=== PATIENT | female | born 1945 | race Caucasian/White ===

== ENCOUNTER 2017-04-24 10:24 | Day surgery (SDC) | payer MEDICARE, OTHER ==
[~2017-04-24] VITALS: Ht 165.1 cm; Wt 90.8 kg
[~2017-04-24 10:24] MED LIST: CELEXA40 MG PO; CENTRUM1 TA1 PO; DETROL1 MG PO; INHALER; RT ADVAIR HFA 1112 G IH; ZANTAC 150MG T150 MG PO
[2017-04-24] MEDS ORDERED: AMBIEN 10MG10 MG PO (11:22)
[2017-04-24] MEDS ORDERED: NEURONTIN800 MG/TAB PO (11:24)
[2017-04-24] MEDS ORDERED: NEURONTIN600 MG/TAB PO (11:25)
[2017-04-24] MEDS ORDERED: PREVACID 15MG15 M1 PO (11:26)
[2017-04-24] MEDS ORDERED: CITRACAL + D CA1 TAB PO (11:28)
[2017-04-24 11:31] VITALS: BP 140/81; PULSE 57; TEMP 97.8
[2017-04-24 14:36] VITALS: BP 134/71; PULSE 56
[2017-04-24 14:51] VITALS: BP 143/61; PULSE 52
[2017-04-24 15:06] VITALS: BP 147/69; PULSE 53
[2017-04-24 15:21] VITALS: BP 153/71; PULSE 61
[2017-04-24] MEDS ORDERED: CEPHALEXIN500 M1 PO (15:51)
== END 2017-04-24 16:05 | disposition home or self-care (01) ==
LOC: SDCO 10:24
DX: R35.0 Frequency of micturition (principal); R39.15 Urgency of urination; F32.9 Major depressive disorder, single episode, unspecified; D64.9 Anemia, unspecified; J45.909 Unspecified asthma, uncomplicated; K21.9 Gastro-esophageal reflux disease without esophagitis; G47.33 Obstructive sleep apnea (adult) (pediatric); M06.9 Rheumatoid arthritis, unspecified; M96.1 Postlaminectomy syndrome, not elsewhere classified; Z96.659 Presence of unspecified artificial knee joint; Z82.49 Family history of ischemic heart disease and other diseases of the circulatory system; Z84.2 Family history of other diseases of the genitourinary system
CPT/HCPCS: C1767; C1778; C1787; C1894; J1885; J2250; J2405; J2704; J3010; J7120

== ENCOUNTER 2017-09-14 11:25 | Day surgery (SDC) | payer MEDICARE, OTHER ==
[2017-09-14] VITALS (12 sets, daily range): BP systolic 93–153; BP diastolic 54–88; PULSE 58–82; TEMP 96.9–98
[~2017-09-14] VITALS: Ht 165.1 cm; Wt 95.0 kg
[~2017-09-14 11:25] MED LIST changes: +AMBIEN 10MG10 MG PO; +CEPHALEXIN500 M1 PO; +CITRACAL + D CA1 TAB PO; +NEURONTIN600 MG/TAB PO; +NEURONTIN800 MG/TAB PO; +PREVACID 15MG15 M1 PO
[2017-09-14] MEDS ORDERED: ASPIRIN 32325 MG/TAB PO (12:31)
[2017-09-14 12:56] LABS: HEMATOCRIT 40.9 % (37.0-47.0); HEMOGLOBIN 13.1 g/dl (12.5-16.0); MEAN CELL VOLUME 88 fl (80.0-100.0); MEAN CORPUSCULAR HEMOGLOBIN 28 pg (27.0-31.0); MEAN CORPUSCULAR HGB CONC 32 g/dl (33.0-37.0); MEAN PLATELET VOLUME 9.8 fl (7.4-10.4); PLATELET COUNT 257 K/mm3 (130-400); RED BLOOD COUNT 4.67 M/mm3 (4.10-5.30); REDCELL DISTRIBUTION WIDTH-CV 15.4 % (11.5-14.5)
[2017-09-14 13:02] LABS: PROTHROMBIN TIME 11.1 SECONDS (9.7-12.8)
[2017-09-14 13:09] LABS: CALCIUM 8.8 mg/dL (8.4-10.2); CREATININE, serum 0.86 mg/dL (0.52-1.25); POTASSIUM 4.3 mmol/L (3.4-5.0)
== END 2017-09-14 20:15 | disposition home or self-care (01) ==
LOC: COL.CAR 11:25
PROVIDERS: Internal Medicine Interventional Cardiology
DX: I25.118 Atherosclerotic heart disease of native coronary artery with other forms of angina pectoris (principal); G25.81 Restless legs syndrome; Z79.82 Long term (current) use of aspirin; Z82.49 Family history of ischemic heart disease and other diseases of the circulatory system; Z83.3 Family history of diabetes mellitus
CPT/HCPCS: J2250; J3010; Q9967

== ENCOUNTER 2023-12-26 05:16 | Day surgery (SDC) | payer MEDICARE, OTHER ==
[~2023-12-26] VITALS: Ht 165.1 cm; Wt 89.9 kg
[2023-12-26] VITALS (16 sets, daily range): BP systolic 106–146; BP diastolic 53–76; PULSE 50–84; TEMP 97.2–98.1
[~2023-12-26 05:16] MED LIST changes: +ASPIRIN 32325 MG/TAB PO
[2023-12-26] MEDS ORDERED: Acetaminophen 500 MG TAB PREOP X1 PO SCH (06:00)
[2023-12-26] MEDS ORDERED: Pregabalin 150 MG CAP PREOP X1 PO SCH (06:00)
[2023-12-26] MEDS ORDERED: Celecoxib 400 MG PREOP X1 PO SCH (06:00)
[2023-12-26] MEDS ORDERED: LR 1,000 ML IV SCH (06:00)
[2023-12-26] MEDS ORDERED: Famotidine 20 MG TAB PO SCH (06:00)
[2023-12-26] MEDS ORDERED: TAGAMET300 MG PO (06:37)
[2023-12-26] MEDS ORDERED: DESYREL 100MG100 MG PO (06:37)
[2023-12-26] MEDS ORDERED: GEMTESA75 MG PO ×2 (06:38→13:03)
--- NOTE | 2023-12-26 06:39 | NUR ---
Pt admitted to [facility] at 0530. Admission assessments completed. Consent signed. Pharmacy, allergies, and medications confirmed. 18G IV inserted into LFA, LR infusing without difficulty. Pt has incontinenc pad on, will let her leave on until they take her to OR. Glasses on at this time, upper dentures remain in per preference. RLE marked and cleansed per order. Thigh high GILBERT hose to LLE. Pedal pulses marked. Daughter, Sharon, at bedside. See EMAR for medications given. Voids urine. Cart in low position, call light within reach.
[2023-12-26] MEDS ORDERED: Lidocaine PF 2% (20 MG/ML) 5 ML VIAL ONE (06:41)
[2023-12-26] MEDS ORDERED: fentaNYL 50 MCG/ML 2 ML VIAL ONE (06:45)
[2023-12-26] MEDS ORDERED: Midazolam 2 MG/2 ML VIAL ONE (06:45)
[2023-12-26] MEDS ORDERED: oxyCODONE 5 MG TAB PO PRN (07:15)
[2023-12-26] MEDS ORDERED: Ondansetron 4 MG/2 ML VIAL IV PRN ×2 (07:15→09:00)
[2023-12-26] MEDS ORDERED: Magnes Hydrox (MOM) 80 MG/ML 30 ML CUP PO PRN (07:15)
[2023-12-26] MEDS ORDERED: Naloxone 0.4 MG/ML VIAL IV PRN (07:15)
[2023-12-26] MEDS ORDERED: Tranexamic Acid 1,000 MG/10 ML VIAL ONE ×2 (07:43→08:33)
[2023-12-26] MEDS ORDERED: Topical Skin Adhesive 1 EACH (1 ML) TOP ONE (07:46)
[2023-12-26] MEDS ORDERED: NS 100 ML IV ONE (08:59)
[2023-12-26] MEDS ORDERED: dexAMETHasone 10 MG/ML VIAL ONE (08:59)
[2023-12-26] MEDS ORDERED: Glycopyrrolate 0.2 MG/ML 1 ML VIAL ONE (08:59)
[2023-12-26] MEDS ORDERED: Ondansetron 4 MG/2 ML VIAL ONE (08:59)
[2023-12-26] MEDS ORDERED: Phenylephrine 10 MG/ML VIAL ONE (08:59)
[2023-12-26] MEDS ORDERED: hydrALAZINE 20 MG/ML 1 ML VIAL IV PRN (09:00)
[2023-12-26] MEDS ORDERED: HYDROmorphone 1 MG/1 ML SYRINGE [PACU/SDC ONLY] IV PRN (09:00)
[2023-12-26] MEDS ORDERED: fentaNYL 50 MCG/ML 1 ML SYRINGE/VIAL [PACU/SDC ONLY] IV PRN (09:00)
--- NOTE | 2023-12-26 10:52 | NUR ---
PT TO ROOM 347 PER BED WITH REPORT FROM VIANEY LEAD ESTHETICIAN @8150. PT IS A/O X4, LUNGS CTA, BOWEL SOUNDS PRESENT. DRESSING TO RIGHT KNEE CDI WITH OCLUSIVE ASIYA WRAP OVER GAUZE . SCDS BILATERALLY. VSS. PT DENIES PAIN AT THIS TIME.
[2023-12-26] MEDS ORDERED: ceFAZolin 2 G in Water For Injection,Sterile 20 ML IV SCH ×2 (11:06→15:30)
[2023-12-26] MEDS ORDERED: Naproxen 250 MG TAB PO SCH (11:06)
[2023-12-26] MEDS ORDERED: Acetaminophen 500 MG TAB PO SCH (12:00)
--- NOTE | 2023-12-26 20:20 | NUR ---
Patient rating pian 6/10 on pain scale. Oxycodone given per dr order. Fresh ice applied to right knee
[2023-12-26] MEDS ORDERED: Gabapentin 400 MG CAP PO SCH (21:00)
[2023-12-26] MEDS ORDERED: traZODone 100 MG TAB PO SCH (21:00)
[2023-12-26] MEDS ORDERED: [UNRECOGNIZED DRUG - OTHER] PO SCH (21:00)
[2023-12-26] MEDS ORDERED: LANSOPRAZOLE 30 MG PO SCH (21:00)
[2023-12-26] MEDS ORDERED: VIBEGRON 75 MG PO SCH (21:00)
[2023-12-26] MEDS ORDERED: Citalopram 20 MG TAB PO SCH (21:00)
[2023-12-26] MEDS ORDERED: [UNRECOGNIZED DRUG - OTHER] PO SCH (21:00)
[2023-12-26] MEDS ORDERED: Zolpidem 10 MG TAB PO SCH (21:00)
[2023-12-26] MEDS ORDERED: Sennosides/Docusate 8.6-50 MG TAB PO SCH (21:00)
--- NOTE | 2023-12-26 21:20 | NUR ---
Patient called asking if pain meds were already given. Oxycodone was given at 2019. Patient states that pain is worse now-rating pain 7/10 on pain scale. 2nd oxycodone given per dr order. Fresh ice to right knee. Repositioned on pillow. WIll continue to monitor.
--- NOTE | 2023-12-27 03:40 | NUR ---
Patient c/o pain to right knee-rating pain 7/10 on pain scale-described as constant ache/throbbing. Oxycodone/tylenol given per dr order. WIll monitor.
[2023-12-27 04:00] VITALS: BP 126/67; PULSE 60; TEMP 98.6
[2023-12-27 04:03] VITALS: BP_SYST 126
--- NOTE | 2023-12-27 06:32 | NUR ---
Patient had an uneventful night. Received oxycodone x2 for pain control with good results. Voiding without difficulty. Up out of bed to ambulate. VS stable. TEDs/SCDs bilat. Fresh ice packs applied throughout night. Denies current questions/concerns. Call light in reach. Will monitor.
--- NOTE | 2023-12-27 06:44 | NUR ---
Bedside report given to DANIELLE Hilton.
[2023-12-27 06:55] LABS: HEMOGLOBIN 12.5 g/dl (12.5-16.0)
[2023-12-27 07:04] LABS: INR 1.1 (0.8-3.0); PROTHROMBIN TIME 11.8 SECONDS (9.7-12.8)
[2023-12-27] MEDS ORDERED: oxyCODONE 5 MG TAB PO PRN (07:30)
--- NOTE | 2023-12-27 08:10 | NUR ---
Pt. sitting up in bed. Pt. is A&OX3, assessment complete. INT to lt. ac patent. Dressing to lt. knee CDI. Pt. assisted with 1A, walker and gait belt to the the bathroom then to the chair. Pt. reported pain at a 8 on pain scale after ambulation. Gave pain meds. Pt. denies further needs, call light within reach.
[2023-12-27 09:00] VITALS: BP_SYST 112
[2023-12-27] MEDS ORDERED: [UNRECOGNIZED DRUG - REMARK] PO SCH (09:00)
[2023-12-27] MEDS ORDERED: [UNRECOGNIZED DRUG - OTHER] PO SCH (09:00)
[2023-12-27] MEDS ORDERED: Famotidine 20 MG TAB PO SCH (09:00)
[2023-12-27] MEDS ORDERED: VIBEGRON 75 MG PO SCH (09:00)
[2023-12-27] MEDS ORDERED: Citalopram 20 MG TAB PO SCH ×2 (09:00→21:00)
[2023-12-27 09:15] VITALS: BP 112/60; PULSE 63; TEMP 98
--- NOTE | 2023-12-27 10:01 | NUR ---
SW met with patient to complete initial assessment for discharge planning. Patient verified that she lives in [place] with her Josse ([phone]). Patient sees Dr. Geovanni Saunders in [place] as her PCP and uses [facility] pharmacy in [place]. Patient denies having a DPOA completed and did not want to complete one at this time. Patient uses a rollator walker, wheelchair, cane, shower chair, grab bar and BIPAP at home. Patient states she was independent and driving herself until about a week prior to surgery. Patient's daughter will drive her home at discharge. Patient questioned getting a taller shower chair and a toilet riser due to difficulty standing from sitting position. Encouraged patient to purchase these items at [facility] or [facility] as insurance does not cover these items. Patient voiced understanding. Patient reports to be scheduled for OP therpay at [facility] in [place] for Saturday 12/30 at 1 pm. Discharge orders and clinicals will be faxed when completed. Discharge plan: Home with OP therapy
[2023-12-27 11:28] VITALS: BP 106/65; PULSE 62; TEMP 97.6
[2023-12-27 13:00] VITALS: BP_SYST 106
--- NOTE | 2023-12-27 16:30 | NUR ---
Pt. ready for discharge. INT discontinued from lt. forearm. Aquacell dressing CDI. Reviewed and gave discharge paperwork to the pt. and family at bedside. Pt. and familu voice understanding. Pt. dressed and escorted out by wheelchair.
== END 2023-12-27 16:30 | disposition home or self-care (01) ==
LOC: SDCO 05:16 → SURG 10:30 → SDCO 12-27 16:30
PROVIDERS: Orthopaedic Surgery
DX: M17.11 Unilateral primary osteoarthritis, right knee (principal); G47.33 Obstructive sleep apnea (adult) (pediatric)
CPT/HCPCS: OP; A6197; A9284; C1713; C1776; J0688; J1100; J2250; J2371; J2405; J2795; J3010; J7120